=== PATIENT | male | born 1950 | race Caucasian/White ===

== ENCOUNTER 2021-08-29 12:05 | Outpatient (CLI) | payer MEDICARE ==
[2021-08-29 20:00] LABS: SARS-CoV-2 PCR by NAA Not Detected (NotDetected)
== END 2021-08-29 12:06 | disposition home or self-care (01) ==
LOC: CSHLAB 12:05
PROVIDERS: ATTEND Internal Medicine Gastroenterology
DX: Z20.822 Contact with and (suspected) exposure to COVID-19 (principal); Z12.11 Encounter for screening for malignant neoplasm of colon
CPT/HCPCS: U0003; U0005

== ENCOUNTER 2021-09-01 09:20 | Day surgery (SDC) | payer MEDICARE ==
[2021-08-31 08:56] VITALS: BMI 24.4
[2021-09-01] MEDS ORDERED: Lidocaine 1% MPF 2 ML VIAL ONE (10:24)
[2021-09-01] MEDS ORDERED: PROPOFOL 40 ML ONE (11:17)
[2021-09-01] MEDS ORDERED: Lidocaine 1% PF 5 ML VIAL ONE (11:18)
[2021-09-01] MEDS ORDERED: PHENYLEPHRINE-NS 100 MCG/ML 10 ML SYRINGE ONE (11:45)
== END 2021-09-01 13:10 | disposition home or self-care (01) ==
LOC: CSHSDC 09:20
PROVIDERS: ATTEND Internal Medicine Gastroenterology
PROC: 0DBN8ZZ Excision of Sigmoid Colon, Via Natural or Artificial Opening Endoscopic (ICD-10-PCS; principal; 2021-09-01)
DX: Z12.11 Encounter for screening for malignant neoplasm of colon (principal); K63.5 Polyp of colon; K64.9 Unspecified hemorrhoids; I10 Essential (primary) hypertension; E78.5 Hyperlipidemia, unspecified
CPT/HCPCS: 88305; J2704